=== PATIENT | male | born 1955 | race Caucasian/White ===

== ENCOUNTER 2017-06-01 07:02 | Emergency (ER) | payer MEDICARE, MEDICAID ==
[~2017-06-01] VITALS: Ht 185.4 cm; Wt 72.6 kg
[~2017-06-01 07:02] MED LIST: ASPI325T8 PO; ATOR10TA60 PO; BISA10SU55 RC; CHOL10003 PEG; GUAI100L12 PO; HALO100A2 IM; IBUP-1027 PO; LANS30CA66 PO; LOPE2TAB56 PO; LORA2TAB PO; MIRT15TA3 PO; NITR0.4T22 SL; OLAN5TAB9 PO; RISP25DI IM; VALP250S5 PEG
[2017-06-01 07:13] VITALS: BP 154/100
[2017-06-01] MEDS ORDERED: IOHEXOL 300 MG/ML 50 ML VIAL. IJ ONE (07:30)
[2017-06-01] MEDS ORDERED: CONTRAST GIVEN MC PRN (07:30)
--- NOTE | 2017-06-01 07:38 | PHYS DOC ---
Past Medical History Past Medical History: Anxiety, Depression, GERD, High Cholesterol, Hypertension , [place], Prostatitis, Seizure, Schizophrenia, Other Additional Past Medical Histor: ulcerative colitis, dysphagia, Past Surgical History: Other Additional Past Surgical Histo: unknown Alcohol Use: None Drug Use: None Adult General Chief Complaint Chief Complaint: GTUBE REPLACEMENT/MALFUNCTION HPI HPI Patient is a 61 year old male who presents with G-tube dislodgment. He woke up and the tube was no longer in there. Patient is communicating with head nods. He is unsure of when the tube came out and he is unsure of what size to be had. No reports of recent illness. Review of Systems Review of Systems Unable to obtain due to Medical condition Current Medications Current Medications Current Medications Medications (Trade) Dose Ordered Sig/Yen Start Time Stop Time Status Last Admin Dose Admin Info (Do NOT chart on this entry -- for MONITORING) 1 each PRN DAILY PRN 06/01/17 07:30 06/03/17 07:29 Iohexol (Omnipaque 300 Mg/ml) 50 ml 1X ONCE 06/01/17 07:30 06/01/17 07:31 DC 06/01/17 07:51 20 ML Allergies Allergies Allergies Coded Allergies Type Severity Reaction Last Updated Verified No Known Drug Allergies 12/22/14 No Physical Exam Physical Exam Constitutional: Well developed, thin, diffuse tremors HENT: Normocephalic, atraumatic Eyes: conjunctiva normal, no discharge. [] Neck: Normal range of motion Cardiovascular:Heart rate regular Lungs & Thorax: no respiratory distress Abdomen: soft, no guarding or peritoneal signs, nondistended, G tube absent, hole appears somewhat patent Skin: Warm, dry, Neurologic: diffuse tremors, appears to understand what I'm saying. Current Patient Data Vital Signs Vital Signs Date Time Temp Pulse Resp B/P (MAP) Pulse Ox O2 Delivery O2 Flow Rate FiO2 06/01/17 07:13 96.9 65 18 154/100 (118) 97 Room Air 96.9 EKG EKG [] Radiology/Procedures Radiology/Procedures G-Tube replacement: Explained to pt what we were going to do. Attempted 20french tube and absolutely no entry. Started to dilate with 14 b[place] sewell tube, easily passed. Then 16 [place] sewell went in with some resistance Placed 18 bermudian g-tube with good entry, per package labeling placed 20ml NS in balloon. Pt sent to [facility] for gastrograffin study. KUB XR IMPRESSION: 1. The gastrostomy tube is in the stomach. No evidence of leak. Course & Med Decision Making Course & Med Decision Making Pertinent Labs and Imaging studies reviewed. (See chart for details) g-tube replaced, verified by [facility] Pt dc'd back to long term. Dragon Disclaimer Dragon Disclaimer This electronic medical record was generated, in whole or in part, using a voice recognition dictation system. Departure Departure Impression: Primary Impression: Dislodged gastrostomy tube Disposition: 01 HOME, SELF-CARE Condition: STABLE Referrals: GALLITO COLLINS (PCP) MARTHA ROMANO MD Jun 01, 2017 07:38
--- NOTE | 2017-06-01 07:52 | RAD ---
EXAM: Abdomen one view. HISTORY: Check G-tube placement. COMPARISON: 02/27/2013. FINDINGS: A frontal view of the abdomen is obtained after injection of the gastrostomy tube. Contrast is noted within the stomach. There is no evidence of leak. The balloon appears inflated. There are no distended small bowel loops. There is gas distally. IMPRESSION: 1. The gastrostomy tube is in the stomach. No evidence of leak.
== END 2017-06-01 10:20 | disposition home or self-care (01) ==
LOC: ER 07:02
DX: Z43.1 Encounter for attention to gastrostomy (principal); I10 Essential (primary) hypertension; F20.9 Schizophrenia, unspecified; I25.2 Old myocardial infarction; K21.9 Gastro-esophageal reflux disease without esophagitis; E78.00 Pure hypercholesterolemia, unspecified; Y82.8 Other medical devices associated with adverse incidents; Y92.89 Other specified places as the place of occurrence of the external cause
CPT/HCPCS: 43760; 74000; 99284; Q9967